=== PATIENT | female | born 1990 | race Caucasian/White ===

== ENCOUNTER → 2017-10-19 | Outpatient (CLI) | payer OTHER ==
[~2017-10-19] VITALS: Ht 167.6 cm; Wt 73.0 kg
[~2017-10-19] MED LIST: GADOBUTROL 7.5 MMOL/7.5 ML (GADAVIST) VIAL IV ONE; IOHEXOL 240 MGI/ML 20 ML (OMNIPAQUE) VIAL IV ONE; LIDOCAINE 1% INJ 20 ML 20 ML VIAL INJ ONE; LIDOCAINE 1% INJ 20 ML 20 ML VIAL ONE
--- NOTE | 2017-10-19 13:36 | Diagnostic Imaging Report ---
INDICATION: Right shoulder pain. FINDINGS: Patient was brought to the procedure room and placed on the table in the supine position. Right shoulder was prepped and draped in the usual sterile fashion. Small amount of 1% lidocaine was utilized for local anesthesia. A 21-gauge needle was advanced into the right shoulder at the rotator interval. A 15 mL solution of iodinated contrast, normal saline and gadolinium was injected under fluoroscopic observation. The needle was withdrawn and hemostasis was obtained. Patient tolerated the procedure well and was sent to MRI in satisfactory condition. 12 seconds of fluoroscopy was utilized. IMPRESSION: Successful right shoulder injection of gadolinium contrast solution, using fluoroscopy. Dictated by: Dictated on workstation # [id number]
--- NOTE | 2017-10-19 14:46 | Diagnostic Imaging Report ---
MRI RT UPPER EXT JOINT WITH Technique: Multiplanar, multisequence MR imaging of the right shoulder was performed after direct intra-articular contrast administration. Comparison: None available. Indication: Right shoulder pain after injury. Findings: Rotator cuff: No rotator cuff tear, tendinopathy or muscle atrophy. Glenoid labrum: Glenoid labrum is intact. There is a normal variant sub-labral foramen at the 1-3 o'clock position. Long head of biceps: Long head of biceps is normally positioned within the bicipital groove. The intracapsular segment is intact. Bones and cartilage: Humeral head is normal in morphology without fracture or focal osseous lesion. No glenohumeral chondromalacia. The acromioclavicular joint is normal in alignment without significant degenerative change. Soft tissues: No proliferative synovitis or loose bodies within the glenohumeral joint. No MRI findings to suggest adhesive capsulitis. No fluid or inflammatory like signal within the subacromial/subdeltoid space to indicate bursitis. IMPRESSION: 1. No labral tear. A normal variant sub-labral foramen is present. 2. The rotator cuff is normal. 3. Long head of biceps remains intact. Dictated by: Dictated on workstation # [id number]
== END ==
LOC: RAD 12:47
PROVIDERS: ATTEND Nurse Practitioner Family
DX: S49.91XA Unspecified injury of right shoulder and upper arm, initial encounter (principal); M24.111 Other articular cartilage disorders, right shoulder; R25.2 Cramp and spasm; M54.9 Dorsalgia, unspecified; J45.909 Unspecified asthma, uncomplicated; Y93.16 Activity, rowing, canoeing, kayaking, rafting and tubing
CPT/HCPCS: 23350; 73040; 73222